=== PATIENT | male | born 1975 | race Caucasian/White ===

== ENCOUNTER 2017-07-24 05:55 | Emergency (ER) | payer SELFPAY, OTHER | END 2017-07-24 08:10 | disposition home or self-care (01) | LOC: ER 05:55 | DX: S52.131A Displaced fracture of neck of right radius, initial encounter for closed fracture (principal); W11.XXXA Fall on and from ladder, initial encounter; Y93.89 Activity, other specified; Y92.89 Other specified places as the place of occurrence of the external cause; Y99.8 Other external cause status | CPT/HCPCS: 29105; 73080; 99284 ==